=== PATIENT | male | born 1960 | race Two or more races ===

== ENCOUNTER 2024-02-19 15:20 | Emergency (ER) | payer SELFPAY ==
[2024-02-19 15:27] VITALS: BP 121/77
[2024-02-19 15:47] LABS: % Basophils 0.7 % (0-2); % Eosinophils 1.3 % (0-6); % Immature Granulocytes 0.3 % (0-0.5); % Lymphocytes 24.2 % (20.5-51.1); % Monocytes 4.9 % (1.7-9.3); % Neutrophils 68.6 % (42.2-75.2); Absolute Basophils 0.1 10^3/uL (0-0.2); Absolute Eosinophils 0.1 10^3/uL (0-0.7); Absolute Lymphocytes 1.7 10^3/uL (1.2-3.4); Absolute Monocytes 0.3 10^3/uL (0.1-0.6); Absolute Neutrophils 4.7 10^3/uL (1.4-6.5); Hematocrit 38.7 % (39.0-52.0); Hemoglobin 13.7 g/dL (13.0-18.0); Mean Corp Hgb Conc. 35.4 g/dL (33.0-37.0); Mean Corpuscular Hgb 31.7 pg (27.0-31.0); Mean Corpuscular Volume 89.6 fL (80.0-94.0); Mean Platelet Volume 9.1 fL (7.4-10.4); Nucleated Red Blood Cells % 0 % (-); Platelet Count 238 10^3/uL (130-400); Red Blood Cell Count 4.32 10^6/uL (4.70-6.10); Red Cell Dist. Width 12.3 % (11.5-14.5); White Blood Cell Count 6.9 10^3/uL (4.8-10.8)
[2024-02-19 16:34] LABS: NT-proBNP 86.6 pg/ml
[2024-02-19 17:11] LABS: ALT (SGPT) 11 U/L (0-50); AST (SGOT) 26 U/L (17-59); Albumin 4.5 g/dl (3.5-5.0); Alkaline Phosphatase 73 U/L (38-126); Blood Urea Nitrogen 21 mg/dl (9-20); Calcium 9.6 mg/dl (8.4-10.2); Carbon Dioxide 21 mmol/L (22-30); Chloride 105 mmol/L (98-107); Glucose 103 mg/dl (70-99); Potassium 4.4 mmol/L (3.5-5.1); Sodium 137 mmol/L (135-145); Total Bilirubin 0.5 mg/dl (0.2-1.3); Total Protein 7.2 g/dl (6.3-8.2); eGFR > 60.00
[2024-02-19 17:34] VITALS: BP 145/105
[2024-02-19 18:00] VITALS: BP 158/97
[2024-02-19 18:19] LABS: D-Dimer 0.65 ug/mlFEU (0.00-0.50)
[2024-02-19 18:31] LABS: COVID-19 Antigen Negative (Negative)
[2024-02-19 18:39] VITALS: BP 141/90
[2024-02-19 18:54] LABS: Troponin I < 0.012 ng/ml
[2024-02-19 20:42] LABS: Urine Albumin Negative (Neg - Trace); Urine Bilirubin Negative (Negative); Urine Character Clear (Clear); Urine Color Yellow; Urine Glucose Negative (Negative); Urine Ketone Negative (Negative); Urine Leukocyte Negative (Negative); Urine Nitrite Negative (Negative); Urine Occult Blood Negative (Negative); Urine Urobilinogen Negative (Neg - 1+)
--- NOTE | 2024-02-19 21:27 | ED.GENMED ---
History of Present Illness
General
Chief Complaint: Breathing Problem
Source: patient and family
Exam Limitations: none
Time Seen by Provider: 02/19/24 17:29
History of Present Illness
History of Present Illness:
Patient to ED with complaint of cough increasing weakness over the past few weeks. Advised by PCP to come to ED for eval. Denies fever/chills, n/v/d.
Past History
Past History
ED Past Medical History: GERD, Hypercholesterolemia, NIDDM and Other (Parkinson's)
Review of Systems
Review of Systems
Allergies reviewed?: Yes
All Other Systems: ROS reviewed and negative except as documented in HPI and ROS
Constitutional: Reports fatigue
EENT: Reports no symptoms
Respiratory: Reports cough
Cardiac: Reports no symptoms
ABD/GI: Reports no symptoms
: Reports no symptoms
Musculoskeletal: Reports no symptoms
Skin: Reports no symptoms
Neurological: Reports no symptoms
Psychiatric: Reports no symptoms
Phy Exam
General Physical Exam
General Presentation: well appearing and no apparent distress
General age: appears stated age
General Skin: warm and dry
General Habitus: normal
General Mental: alert
Cardiovascular Exam
Cardiovascular Exam: regular rate/rhythm and no edema
Pulmonary Exam
Pulmonary Exam: lungs clear and no respiratory distress
Gastrointestinal Exam
Gastrointestinal Exam: normal bowel sounds, non tender, soft, no organomegaly and non distended
Musculoskeletal Exam
Musculoskeletal Exam: full ROM and neuro vasc intact
Skin Exam
Skin Exam: normal color, warm/dry and no rash
Psychiatric Exam
Psychiatric Exam: normal mood/affect
Scores
Heart Failure Risk
Heart Failure Risk Score: Not Applicable
Course
Orders/Labs/Results
Orders:
Orders
02/19/24 15:28
ECG [Electrocardiogram (*1)] Urgent
Reason for Study: Shortness of Breath
EKG- Treatment ONCE
CR Chest - 2 Views Urgent
Comment:
Reason For Exam: productive cough
02/19/24 15:39
Complete Blood Count/With Diff Urgent
Comprehensive Metabolic Panel Urgent
NT-proBNP Urgent
Troponin I Urgent
Comment: ADD ON
02/19/24 17:57
Add On- LAB Urgent
Tests Added?: Troponin
02/19/24 18:00
COVID-19 Antigen Urgent
Source: Nasal Swab
D-Dimer Urgent
02/19/24 18:24
CT Chest Pe Study Urgent
Comment:
Reason For Exam: SOB, hypoxia, pain
02/19/24 20:35
Urinalysis Reflex To Culture Urgent
Date Specimen was Collected: 02/19/24
Time Specimen was Collected: 20:30
Abnormal Lab Results
02/19/24 02/19/24
15:39 18:00
RBC 4.32 L 10^6/uL
(4.70-6.10)
Hct 38.7 L %
(39.0-52.0)
MCH 31.7 H pg
(27.0-31.0)
D-Dimer 0.65 H ug/mlFEU
(0.00-0.50)
Carbon Dioxide 21 L mmol/L
(22-30)
BUN 21 H mg/dl
(9-20)
Glucose 103 H mg/dl
(70-99)
02/19/24 15:39
02/19/24 15:39
Vital Signs
Initial and Last Documented VS:
Initial Vital Signs
Temp Pulse Resp BP Pulse Ox
97.9 F 74 16 121/77 92
02/19/24 15:27 02/19/24 15:27 02/19/24 15:27 02/19/24 15:27 02/19/24 15:27
Last Documented Vital Signs
Temp Pulse Resp BP Pulse Ox
99.1 F 75 16 143/93 94
02/19/24 17:36 02/19/24 21:40 02/19/24 21:40 02/19/24 21:40 02/19/24 21:40
*Radiology
Radiology exam reviewed: radiology read reviewed
*Pulse Oximetry
Patient hypoxic: no
*Critical Care Note
Total Time (30-74mins, 75-104mins- exclusive of procedures): Not Applicable
ED Attending Note
-
Portions of this chart may have been created with voice recognition software.� Occasional wrong word or��sound alike� substitutions may have occurred due to the inherent limitations of voice recognition software.
Discharge Plan
Departure
Patient Disposition: Home (Routine Discharge)
Date of Disposition: 02/19/24
Time of Disposition: 20:59
Patient with high blood pressure during this ER visit?: No
Condition: Good
Covid-19: Not Applicable
Discharge Problem:
Weakness
Instructions: Weakness
Prescriptions:
No Action
metformin [Glucophage] 500 mg Tablet
500 mg PO BID
carbidopa-levodopa 50-200 mg Tablet Extended Release
0.5 tab PO DAILY
bisoprolol fumarate 5 mg Tablet
5 mg PO DAILY
amitriptyline [Elavil] 25 mg Tablet
25 mg PO HS
tamsulosin 0.4 mg Capsule
0.4 mg PO DAILY
omeprazole 20 mg Capsule,Delayed Release(Dr/Ec)
20 mg PO DAILY
rosuvastatin 20 mg Tablet
20 mg PO DAILY
aspirin 81 mg Capsule
81 mg PO DAILY
Referrals:
Trevor Bermeo, DO [Family Provider] - Tomorrow
Interventions
Interventions:
*Risk Screen - Suicide Last Done: 02/19/24 20:42
*General Assessment Last Done: 02/19/24 21:40
*Neglect/Abuse Screening Last Done: 02/19/24 20:42
ED- Fall Risk Assessment Last Done: 02/19/24 20:42
*ED COVID-19 Vaccine History Last Done: 02/19/24 15:22
*Nursing Disposition Last Done: 02/19/24 21:40
ED- Cardiac Assessment Last Done: 02/19/24 17:48
ED- Pulmonary Assessment Last Done: 02/19/24 17:48
Discharge Date and Time
Discharge Date/Time: 02/19/24 21:40
Print Language: [place]
[2024-02-19 21:37] VITALS: BP 143/93
[2024-02-19 21:40] VITALS: BP 143/93
== END 2024-02-19 21:40 | disposition home or self-care (01) ==
LOC: EMR 15:20
PROVIDERS: Nurse Practitioner; EMERGENCY PHYSICIAN Student in an Organized Health Care Education/Training Program; FAMILY PHYSICIAN Family Medicine
DX: R53.1 Weakness (principal); K21.9 Gastro-esophageal reflux disease without esophagitis; E78.00 Pure hypercholesterolemia, unspecified; E11.9 Type 2 diabetes mellitus without complications; G20.A1 Parkinson's disease without dyskinesia, without mention of fluctuations; J44.9 Chronic obstructive pulmonary disease, unspecified
CPT/HCPCS: 99284; 71046; 71275; 80053; 81003; 83880; 84484; 85025; 85379; 87811; 93005; Q9967

== ENCOUNTER → 2024-10-03 13:42 | Outpatient (REF) | payer OTHER, SELFPAY | LOC: HWRAD 13:42 | PROVIDERS: ATTENDING PHYSICIAN Family Medicine | DX: R68.81 Early satiety (principal); R52 Pain, unspecified | CPT/HCPCS: 74176 ==

== ENCOUNTER → 2024-12-16 14:32 | Outpatient (REF) | payer OTHER, SELFPAY | LOC: HWRAD 14:32 | PROVIDERS: ATTENDING PHYSICIAN Specialist; FAMILY PHYSICIAN Family Medicine | DX: R33.9 Retention of urine, unspecified (principal) | CPT/HCPCS: 76770 ==